=== PATIENT | female | born 1995 | race Caucasian/White ===

== ENCOUNTER 2018-05-08 18:37 | Emergency (ER) | payer BC ==
[2018-05-08 20:31] VITALS: BP 114/70
--- NOTE | 2018-05-08 20:59 | UC ---
Skin Complaint HPI - HPI Summary HPI Summary: 22 yo female with pruritic spot on her left arm that she noted yesterday. Assumed that it was a bug bite last week [place] very [place]itic - History of Current Complaint Chief Complaint: UCSkin Stated Complaint: SKIN CONCERN Hx Obtained From: Patient Hx Last Menstrual Period: 04/03/18 Onset/Duration: Gradual Onset, Lasting Hours Timing: Constant Onset Severity: Mild Current Severity: Severe Pain Intensity: 0 - itching Location: Discrete, Other - left arm Character: Swelling, Pruritus, Redness, Raised Aggravating Factor(s): Touch Alleviating Factor(s): Nothing Associated Signs & Symptoms: Positive: Rash - Allergy/Home Medications Allergies/Adverse Reactions: Allergies Allergy/AdvReac Type Severity Reaction Status Date / Time No Known Allergies Allergy Verified 05/08/18 20:22 Home Medications: Home Medications Norgestimate-Ethinyl Estradiol [Wwq-Zn-Resajg 0.18/0.215/0.25 mg-25 Mcg] 1 tab PO DAILY 05/08/18 [History Confirmed 05/08/18] diPHENhydraMINE 2% CREAM(NF) [Benadryl 2% CREAM (NF)] 1 applic TOPICAL TID PRN 05/08/18 [History Confirmed 05/08/18] PMH/Surg Hx/FS Hx/Imm Hx Previously Healthy: Yes - Surgical History Surgical History: Yes Surgery Procedure, Year, and Place: 2001--Urinary reflux sx. - Family History Known Family History: Positive: Hypertension - Social History Alcohol Use: Occasionally Substance Use Type: None Smoking Status (MU): Never Smoked Tobacco Review of Systems All Other Systems Reviewed And Are Negative: Yes Constitutional: Positive: Negative Skin: Positive: Rash Eyes: Positive: Negative ENT: Positive: Negative Respiratory: Positive: Negative Cardiovascular: Positive: Negative Gastrointestinal: Positive: Negative Genitourinary: Positive: Negative Motor: Positive: Negative Neurovascular: Positive: Negative Musculoskeletal: Positive: Negative Neurological: Positive: Negative Psychological: Positive: Negative Physical Exam Vital Signs: Initial Vital Signs Temp 98.2 F 05/08/18 20:26 Pulse 72 05/08/18 20:26 Resp 16 05/08/18 20:26 BP 114/70 05/08/18 20:26 Pulse Ox 100 05/08/18 20:26 Images Front/Back of Body, Lg (Lander): 1 - red/raised with linear area that looks suspicious for Contact Dermatitis Course/Dx - Diagnoses Provider Diagnosis: Rash in adult Discharge - Sign-Out/Discharge Documenting (check all that apply): Patient Departure All imaging exams completed and their final reports reviewed: No Studies - Discharge Plan Condition: Stable Disposition: HOME Prescriptions: predniSONE TAB* [Deltasone 10 MG TAB*] 10 - 60 mg PO DAILY #43 tab Patient Education Materials: Acute Rash (ED) Referrals: No Primary Care Phys,NOPCP [Primary Care Provider] - Additional Instructions: I am unsure if this rash is due to a contact dermatitis or if it is a local reaction to a bug bite take prednisone taper as directed benadryl 25 mg 2 pills 4x day as needed for itching...will cause drowsiness cool compressed with epsom salts may help recheck if not starting to improved in 2-3 days - Billing Disposition and Condition Condition: STABLE Disposition: Home
[2018-05-08] MEDS ORDERED: predniSONE TAB* 20 MG PO ONE (21:07)
== END 2018-05-08 21:28 | disposition home or self-care (01) ==
LOC: UCCORT 18:37
DX: R21 Rash and other nonspecific skin eruption (principal); L29.9 Pruritus, unspecified
CPT/HCPCS: 99201; G0463; J7512